=== PATIENT | male | born 2000 | race African-American/Black ===

== ENCOUNTER 2018-04-28 22:58 | Emergency (ER) | payer OTHER ==
[~2018-04-28] VITALS: Ht 177.8 cm; Wt 83.9 kg
[~2018-04-28 22:58] MED LIST: NAPROXEN500 MG PO; NORCO 5-325 TA1 EACH PO
[2018-04-29] MEDS ORDERED: ACETAMINOPHEN-1 EAC1 PO (01:25)
== END 2018-04-29 01:34 | disposition home or self-care (01) ==
LOC: ED 22:58
DX: K08.89 Other specified disorders of teeth and supporting structures (principal)
CPT/HCPCS: 99282

== ENCOUNTER 2018-07-21 19:00 | Emergency (ER) | payer OTHER ==
[~2018-07-21] VITALS: Ht 177.8 cm; Wt 83.9 kg
[~2018-07-21 19:00] MED LIST changes: +ACETAMINOPHEN-1 EAC1 PO
[2018-07-21] MEDS ORDERED: CRUTCH1 EACH (19:59)
== END 2018-07-21 20:27 | disposition home or self-care (01) ==
LOC: ED 19:00
DX: S93.401A Sprain of unspecified ligament of right ankle, initial encounter (principal); X50.1XXA Overexertion from prolonged static or awkward postures, initial encounter; Y93.67 Activity, basketball
CPT/HCPCS: 73610; 99283

== ENCOUNTER 2018-12-01 14:21 | Emergency (ER) | payer OTHER ==
[~2018-12-01] VITALS: Ht 177.8 cm; Wt 83.9 kg
[~2018-12-01 14:21] MED LIST changes: +CRUTCH1 EACH
== END 2018-12-01 15:36 | disposition home or self-care (01) ==
LOC: ED 14:21
DX: T25.022A Burn of unspecified degree of left foot, initial encounter (principal); X12.XXXA Contact with other hot fluids, initial encounter
CPT/HCPCS: 99283